=== PATIENT | female | born 1960 | race Caucasian/White ===

== ENCOUNTER 2021-08-02 12:14 | Emergency (ER) | payer MEDICAID ==
[~2021-08-02] VITALS: Ht 170.2 cm; Wt 61.3 kg
[2021-08-02 12:30] VITALS: BP 154/120
[2021-08-02] MEDS ORDERED: [UNRECOGNIZED DRUG - CODE] PO (12:38)
[2021-08-02 14:10] LABS: BASOPHILS # (AUTO) 0.1 K/uL (0.00-0.22); BASOPHILS % (AUTO) 0.8 % (0.0-2.0); EOSINOPHILS # (AUTO) 0.3 K/uL (0-0.4); HEMATOCRIT 44.4 % (36-48); HEMOGLOBIN 14.9 g/dL (12.0-16.0); LYMPHOCYTES % (AUTO) 54.6 % (20.5-51.1); MEAN CORPUSCULAR HEMOGLOBIN 29 pg (27-31); MEAN CORPUSCULAR HGB CONC 34 g/dL (33-37); MEAN CORPUSCULAR VOLUME 84.7 fL (80-94); MONOCYTES # (AUTO) 0.4 K/uL (0.8-1.0); MONOCYTES % (AUTO) 4.6 % (1.7-9.3); NEUTROPHILS # (AUTO) 3.4 K/uL (1.8-7.7); PLATELET COUNT (AUTO) 272 K/uL (140-450); RED BLOOD CELL COUNT(AUTO) 5.24 MIL/uL (4.20-5.40); RED CELL DISTRIBUTION WIDTH 12.9 % (11.6-13.7); WHITE BLOOD COUNT (AUTO) 9.2 K/uL (4.8-10.8)
[2021-08-02 14:40] LABS: ALBUMIN 3.6 g/dL (3.4-5.0); ANION GAP 9.6 (8-16); CARBON DIOXIDE 31.6 mmol/L (21-32); CREATININE 0.7 mg/dL (0.6-1.3); POTASSIUM 5.2 mmol/L (3.5-5.1); TOTAL BILIRUBIN 0.3 mg/dL (0.0-1.0)
[2021-08-02 21:51] VITALS: BP 154/120
--- NOTE | 2021-08-02 21:52 | NUR ---
Patient discharged with v/s stable. Written and verbal after care instructions given and explained. Patient verbalized understanding. Ambulatory with steady gait. All questions addressed prior to discharge. Advised to follow up with PMD.
== END 2021-08-02 21:52 | disposition home or self-care (01) ==
LOC: MED 12:14
DX: R07.89 Other chest pain (principal); M54.2 Cervicalgia; R51.9 Headache, unspecified
CPT/HCPCS: 36415; 71045; 80053; 81002; 84484; 85025; 93005; 93971; 99285

== ENCOUNTER 2023-12-05 10:26 | Emergency (ER) | payer MEDICAID ==
[~2023-12-05] VITALS: Ht 160 cm; Wt 61.2 kg
[~2023-12-05 10:26] MED LIST: [UNRECOGNIZED DRUG - CODE] PO
[2023-12-05 10:38] VITALS: BP 144/72; PULSE 94; RESP 18; TEMP 98.7; O2SAT 96
[2023-12-05 11:41] LABS: FLU B ANTIGEN negative (NEGATIVE)
[2023-12-05 11:43] LABS: FLU A ANTIGEN POSITIVE (NEGATIVE)
[2023-12-05 11:44] LABS: BASOPHILS % (AUTO) 0.8 % (0.0-2.0); EOSINOPHILS # (AUTO) 0.1 K/uL (0-0.4); EOSINOPHILS % (AUTO) 1.4 % (0.0-4.0); HEMATOCRIT 43.2 % (36-48); HEMOGLOBIN 14.6 g/dL (12.0-16.0); LYMPHOCYTES # (AUTO) 1.9 K/uL (2.5-16.5); LYMPHOCYTES % (AUTO) 35.6 % (20.5-51.1); MEAN CORPUSCULAR HEMOGLOBIN 29 pg (27-31); MEAN CORPUSCULAR HGB CONC 34 g/dL (33-37); MEAN CORPUSCULAR VOLUME 86.1 fL (80-94); MONOCYTES # (AUTO) 0.6 K/uL (0.8-1.0); NEUTROPHILS # (AUTO) 2.7 K/uL (1.8-7.7); NEUTROPHILS % (AUTO) 51.2 % (42.2-75.2); PLATELET COUNT (AUTO) 225 K/uL (140-450); RED BLOOD CELL COUNT(AUTO) 5.02 MIL/uL (4.20-5.40); RED CELL DISTRIBUTION WIDTH 13.7 % (11.6-13.7); WHITE BLOOD COUNT (AUTO) 5.3 K/uL (4.8-10.8)
[2023-12-05 12:02] LABS: ANION GAP 12.6 (8-16); CALCIUM 9.7 mg/dL (8.5-10.1); CARBON DIOXIDE 26.2 mmol/L (21-32); CREATININE 0.9 mg/dL (0.6-1.3); POTASSIUM 3.8 mmol/L (3.5-5.1)
[2023-12-05 12:03] LABS: PARTIAL THROMBOPLASTIN TIME 24.9 secs (22-35.6); PROTHROMBIN TIME 10.5 secs (10.8-13.4)
[2023-12-05] MEDS ORDERED: ONDA-188 PO (12:29)
[2023-12-05] MEDS ORDERED: ACET-9882 PO (12:32)
[2023-12-05] MEDS ORDERED: IBUP-1842 PO (12:32)
[2023-12-05 12:42] VITALS: BP 132/73; PULSE 82; RESP 18; TEMP 98.7; O2SAT 97
== END 2023-12-05 12:50 | disposition home or self-care (01) ==
LOC: MED 10:26
DX: U07.1 COVID-19 (principal); J10.1 Influenza due to other identified influenza virus with other respiratory manifestations; E11.9 Type 2 diabetes mellitus without complications; I10 Essential (primary) hypertension; E78.5 Hyperlipidemia, unspecified; Z86.39 Personal history of other endocrine, nutritional and metabolic disease; Z79.84 Long term (current) use of oral hypoglycemic drugs; Z79.1 Long term (current) use of non-steroidal anti-inflammatories (NSAID); Z79.899 Other long term (current) drug therapy; Z88.3 Allergy status to other anti-infective agents
CPT/HCPCS: 36415; 71045; 80048; 83880; 84484; 85025; 85610; 85730; 93005; 99285